=== PATIENT | female | born 1950 | race Caucasian/White ===

== ENCOUNTER 2018-10-18 06:10 | Day surgery (SDC) | payer BC ==
[~2018-10-18] VITALS: Ht 167.6 cm; Wt 67.1 kg
[~2018-10-18 06:10] MED LIST: FENOFIBRATE160 M1 PO; FLUOXETINE HCL20 MG PO; TRAZODONE HCL50 MG PO; VITAMIN D5000 UNIT PO
--- NOTE | 2018-10-18 08:00 | NUR ---
10/18/18 0800 Komal Foster 0755- PT ARRIVES TO PACU WITH EYES OPEN. RESP EVEN AND UNLABORED. OXYGEN SAT HIGH 90'S TO 100% ON 3L VIA NC. PT REPORTS NO PAIN OR NAUSEA. 0757- OXYGEN TURNED OFF. OXYGEN SAT MID TO HIGH 90'S ON RA. RESP EVEN AND UNLABORED.
--- NOTE | 2018-10-18 14:19 | NUR ---
PT ALERT, ORIENTED AND SEEMS PREPARED. FIRST SCOPE, DEALT WITH PREP PROPERLY. PT HAD FEW QUESTIONS, PLEASANT VISIT. PT REQUESTED PRAYER. WILL FOLLOW NEEDED
--- NOTE | 2018-10-18 17:03 | OR ---
[facility] [address], [place] [address] Signed DATE OF OPERATION: 10/18/2018 SURGEON: Tara Bills MD PREOPERATIVE DIAGNOSIS: Screening. POSTOPERATIVE DIAGNOSES: 1. Minimal sigmoid diverticulosis. 2. Minimal internal hemorrhoids. PROCEDURE PERFORMED: Colonoscopy without biopsy. ESTIMATED BLOOD LOSS: None. INDICATIONS: Monserrat is a 68-year-old female who actually presents for her initial screening colonoscopy. She has no lower GI complaints. There is no family history of colon cancer or polyps. I gave her a pamphlet on colonoscopy. We looked at that together in detail. She understands the nature of the test along with the risks including, but not limited to gas, bloating, crampy abdominal pain, bleeding, perforation requiring surgery, and missed diagnosis. She also understands the need for IV conscious sedation. She has expressed understanding and wishes to proceed. DESCRIPTION OF PROCEDURE: Mosnerrat was taken into our endoscopy suite and placed in the left lateral decubitus position. She was given IV sedation with 3 mg of Versed and 100 mcg of fentanyl. A digital rectal exam was performed and this was unremarkable. The adult colonoscope was introduced and advanced all around into the cecum under direct visualization of camera without difficulty. Her prep was good. The scope was slowly withdrawn. We took pictures throughout for photodocumentation. We saw just a few tiny diverticula in the sigmoid colon. They were small, shallow and few in number. The rectum was unremarkable. Upon retroflexion of the scope, she has very small quite minimal internal hemorrhoid tissue columns. After this, the gas was suctioned out and the colonoscope removed. Monserrat tolerated the procedure quite well. RECOMMENDATIONS: Monserrat can follow up in 10 years for repeat colonoscopy. Electronically Signed By: TARA BILLS MD 10/18/18 1703 PATIENT NAME: MONSERRAT GONZALEZ PAKO OPERATIVE REPORT DATE OF : 54 REPORT #: [id number] PHYSICIAN: TARA BILLS MD PCP: NGUYỄN DICK REPORT IS CONFIDENTIAL AND NOT TO BE RELEASED WITHOUT AUTHORIZATION [address] [address] Signed MD ANGEL Alicia/MODL /[id number] cc: KEL Aranda MD Copies: NGUYỄN DICK ANDREW L MD ~ Electronically Signed By: TARA BILLS MD 10/18/18 1703 PATIENT NAME: MONSERRAT GONZALEZ PAKO OPERATIVE REPORT DATE OF : 54 REPORT #: [id number] PHYSICIAN: TARA BILLS MD PCP: NGUYỄN DICK REPORT IS CONFIDENTIAL AND NOT TO BE RELEASED WITHOUT AUTHORIZATION
== END 2018-10-18 08:30 | disposition home or self-care (01) ==
LOC: DS 06:10 → OPS 06:10 → DS 06:45 → OPS 08:30
PROVIDERS: Colon & Rectal Surgery
PROC: 0DJD8ZZ Inspection of Lower Intestinal Tract, Via Natural or Artificial Opening Endoscopic (ICD-10-PCS; principal; 2018-10-18 06:45)
DX: Z12.11 Encounter for screening for malignant neoplasm of colon (principal); K64.8 Other hemorrhoids; K57.30 Diverticulosis of large intestine without perforation or abscess without bleeding; E78.5 Hyperlipidemia, unspecified; E55.9 Vitamin D deficiency, unspecified; F41.0 Panic disorder [episodic paroxysmal anxiety]; F32.9 Major depressive disorder, single episode, unspecified; Z79.899 Other long term (current) drug therapy
CPT/HCPCS: 99153; G0500; J2250; J3010; J7120